=== PATIENT | male | born 1960 | race Caucasian/White ===

== ENCOUNTER 2016-09-10 20:39 | Emergency (ER) | payer OTHER ==
[2016-09-10 21:34] VITALS: BP 132/82
[2016-09-10] MEDS ORDERED: Acetaminophen/oxyCODONE 325-5 MG Tab PO ONE (21:51)
--- NOTE | 2016-09-10 23:11 | EDM.PDOC ---
ED HPI GENERAL MEDICAL PROBLEM - General Chief Complaint: Lower Extremity Injury/Pain Stated Complaint: R LEG PAIN Time Seen by Provider: 09/10/16 22:00 Source of Information: Reports: Patient History Limitations: Reports: No Limitations - History of Present Illness INITIAL COMMENTS - FREE TEXT/NARRATIVE: Lalo is a 56 year old male who presents to the ED today with c/o sudden onset right leg pain. Patient was standing in front of fridge when pain started. Patient denies any injury. Patient does report that a week ago he was doing a lot of yard work and developed lower back pain. Patient reports it was significant for a couple of days with pain radiating into right buttock but has since improved. Patient and his family drove here from [place] over the weekend, he then slept on a very soft bed last night. Patient denies any medical hx, has taken Ibuprofen for pain with really no relief. 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 Right Lower Leg Pain Score (Numeric/FACES): 8 - Related Data Allergies Allergy/AdvReac Type Severity Reaction Status Date / Time No Known Allergies Allergy Verified 09/10/16 21:46 Home Meds: Home Meds NK [No Known Home Meds] 09/10/16 [History] Past Medical History Cardiovascular History: Reports: High Cholesterol, Hypertension - Infectious Disease History Infectious Disease History: Reports: Chicken Pox - Past Surgical History GI Surgical History: Reports: Hernia, Inguinal Social & Family History - Tobacco Use Smoking Status *Q: Never Smoker Second Hand Smoke Exposure: No - Caffeine Use Caffeine Use: Reports: None - Alcohol Use Days Per Week of Alcohol Use: 2 Number of Drinks Per Day: 1 Total Drinks Per Week: 2 - Recreational Drug Use Recreational Drug Use: No Review of Systems - Review of Systems Review Of Systems: ROS reveals no pertinent complaints other than HPI. ED EXAM, GENERAL - Physical Exam Exam: See Below Exam Limited By: No Limitations General Appearance: Alert, WD/WN, Mild Distress. No: No Apparent Distress Ears: Normal External Exam Respiratory/Chest: No Respiratory Distress Cardiovascular: Normal Peripheral Pulses, Regular Rate, Rhythm, No Murmur Back Exam: Normal Inspection Extremities: Other (tender to mid anterior valenzuela on right, mild swelling to ankle region, negative chata's sign, circulation intact, no rash) Neurological: Alert, Oriented, CN II-XII Intact, Other (pain with raising leg) Psychiatric: Normal Affect Skin Exam: Warm, Dry, Intact, No Rash Lymphatic: No Adenopathy Course - Vital Signs Text/Narrative:: Lalo is an otherwise healthy 56 year old male who presents to the ED today with c/o sudden onset of right leg pain. Please refer to HPI and focused exam. Patient on exam is tender to anterior valenzuela, medially, some of what appears nerve pain on light touch but only a very small area. Patient is non-tender to remaining exam. Very mild swelling to right ankle. Proximal and distal pulses intact. Capillary refill intact. Patient does not exhibit any signs concerning for cauda equina. Given patient's hx and explanation of symptoms, it is likely he has an acute sciatica. DVT on the differential given recent travel and mild swelling, negative Chata's sign. Question early shingles of L4 Dermatome as well, patient does have any vesicular lesions. Blood work obtained and CBC, CMP and CRP are within normal limits. US obtained of leg to rule out DVT and is also negative. With patient's recent back and right buttock pain I do feel this is more sciatica related. I will start patient on Percocet for pain, Flexeril for muscle spasm and a tapering dose of Prednisone. Patient was instructed to start Prednisone tonight. Narcotic safety discussed , I did give patient a RX for Acyclovir, my suspicion for Shingles is low, however, I did discuss with patient and his if this localized pain worsens despite treatment we have discussed for sciatica and/or he develops and vesicular lesion, he can go ahead and start the Acyclovir. Patient was encouraged to take ibuprofen 600 mg scheduled every 6 hours for the next 5 days. He can alternate ice and heat as needed. Reasons to return to the ED were discussed in detail, patient is aware that if his pain is not controlled at home he can return here. Patient and agreeable to plan of care and he was discharged in stable condition. Last Recorded V/S: Last Vital Signs Temp 36.6 C 09/10/16 21:40 Pulse 77 09/10/16 21:40 Resp 18 09/10/16 21:40 BP 132/82 09/10/16 21:40 Pulse Ox 99 09/10/16 21:40 - Orders/Labs/Meds Orders: Active Orders 24 hr Category Date Time Status VL Duplex Lwr Ext Veins Ltd Rt [US] Stat Exams 09/10/16 21:52 Taken Labs: Laboratory Tests 09/10/16 09/10/16 Range/Units 22:06 22:06 WBC 7.9 (4.5-11.0) K/uL RBC 5.08 (4.30-5.90) M/uL Hgb 15.0 (12.0-15.0) g/dL Hct 43.3 (40.0-54.0) % MCV 85 (80-98) fL MCH 30 (27-31) pg MCHC 35 (32-36) % Plt Count 277 (150-400) K/uL Neut % (Auto) 72 H (36-66) % Lymph % (Auto) 18 L (24-44) % [place] % (Auto) 8 H (2-6) % Eos % (Auto) 2 (2-4) % Baso % (Auto) 1 (0-1) % Sodium 140 (140-148) mmol/L Potassium 4.2 (3.6-5.2) mmol/L Chloride 103 (100-108) mmol/L Carbon Dioxide 29 (21-32) mmol/L Anion Gap 7.9 (5.0-14.0) mmol/L BUN 15 (7-18) mg/dL Creatinine 1.1 (0.8-1.3) mg/dL Est Cr Clr Drug Dosing 89.26 mL/min Estimated GFR (MDRD) > 60 (>60) Glucose 103 (74-106) mg/dL Calcium 9.4 (8.5-10.1) mg/dL Total Bilirubin 0.4 (0.2-1.0) mg/dL AST 23 (15-37) U/L ALT 43 (12-78) U/L Alkaline Phosphatase 56 (46-116) U/L C-Reactive Protein 0.09 (0.0-0.3) mg/dL Total Protein 7.7 (6.4-8.2) g/dL Albumin 4.1 (3.4-5.0) g/dL Globulin 3.6 H (2.3-3.5) g/dL Albumin/Globulin Ratio 1.1 L (1.2-2.2) Meds: Medications Discontinued Medications Generic Name Dose Route Start Last Admin Trade Name Freq PRN Reason Stop Dose Admin Oxycodone/Acetaminophen 2 tab 09/10/16 21:51 09/10/16 21:59 Percocet 325-5 Mg PO 09/10/16 21:52 2 tab ONETIME ONE Administration Departure - Departure Time of Disposition: 23:25 Disposition: Home, Self-Care 01 Condition: Good Clinical Impression: Sciatic leg pain - Discharge Information Instructions: Sciatica Referrals: PCP,None [Primary Care Provider] - Forms: ED Department Discharge Additional Instructions: Take medication as prescribed. Take ibuprofen scheduled, 600 mg every 6 hours for the next 5 days. Alternate ice/heat. Gentle stretching exercises. Follow up with primary care when you get back home. I hope you feel better. - My Orders Last 24 Hours: My Active Orders 09/10/16 21:52 VL Duplex Lwr Ext Veins Ltd Rt [US] Stat - Assessment/Plan Last 24 Hours: My Active Orders 09/10/16 21:52 VL Duplex Lwr Ext Veins Ltd Rt [US] Stat
--- NOTE | 2016-09-11 11:32 | US ---
VL Duplex Lwr Ext Veins Ltd Rt FINDINGS: Ultrasound examination of the right lower extremity using Doppler and compressive techniqu e demonstrates that the common femoral, femoral, and popliteal veins are patent, and negative for th rombus. The calf veins were segmentally visualized and are negative where seen. IMPRESSION: Lower extremity negative for deep venous thrombosis.
== END 2016-09-10 23:55 | disposition home or self-care (01) ==
LOC: JP.ED 20:39
DX: M54.30 Sciatica, unspecified side (principal); M79.661 Pain in right lower leg; I10 Essential (primary) hypertension; E78.00 Pure hypercholesterolemia, unspecified; Z98.890 Other specified postprocedural states
CPT/HCPCS: 36415; 80053; 85025; 86140; 93971; 99284; A9270